=== PATIENT | male | born 1970 | race Two or more races ===

== ENCOUNTER 2017-05-02 19:52 | Emergency (ER) | payer OTHER ==
[~2017-05-02] VITALS: Ht 172.7 cm; Wt 81.6 kg
[2017-05-02 20:02] VITALS: BP 117/82
== END 2017-05-02 20:18 | disposition home or self-care (01) ==
LOC: ER 19:54
DX: J02.8 Acute pharyngitis due to other specified organisms (principal); F17.200 Nicotine dependence, unspecified, uncomplicated
CPT/HCPCS: 99282; A4606; Z7610